=== PATIENT | male | born 1965 | race Caucasian/White ===

== ENCOUNTER 2023-09-21 23:50 | Emergency (ER) | payer MEDICAID ==
[~2023-09-21] VITALS: Ht 177.8 cm; Wt 89.8 kg
[2023-09-22] MEDS ORDERED: KETOROLAC 60 MG VIAL (30MG/ML) IM ONE ×2 (00:09→00:30)
[2023-09-22] MEDS ORDERED: IBUP-2077 PO (00:47)
[2023-09-22 01:04] VITALS: BP 112/68; PULSE 96; RESP 18; O2SAT 98
== END 2023-09-22 01:05 | disposition home or self-care (01) ==
LOC: EDH 23:50
DX: M94.0 Chondrocostal junction syndrome [Tietze] (principal)
CPT/HCPCS: 99283; 96372; 71100; J1885